=== PATIENT | female | born 1955 | race Caucasian/White ===

== ENCOUNTER 2016-09-13 13:13 | Emergency (ER) | payer OTHER ==
[~2016-09-13] VITALS: Ht 149.9 cm; Wt 56.0 kg
[~2016-09-13 13:13] MED LIST: ACET325T14 PO; ACET650T17 PO; ALPR0.25 PO; ASCO500T8 PO; CHOL100011 PO; DRON400T PO; FURO-92 PO; FURO-93 PO; LOSA50TA6 PO; OMEG1CAP34 PO; POTA10TA90 PO; VITA80004 PO; WARF5TAB PO; WARF7.5T PO
[2016-09-13] MEDS ORDERED: SODIUM CHLORIDE FLUSH 10ML SYR IVF ONE (14:00)
[2016-09-13 14:35] LABS: HEMOGLOBIN 14.4 g/dL (11.7-16.4)
[2016-09-13 14:44] LABS: ASPARTATE AMINO TRANSFERASE 31 U/L (15-37); BLOOD UREA NITROGEN 10 mg/dL (7-18)
[2016-09-13 14:51] LABS: IS PT STATUS REG ER OR PRE ER? YES
[2016-09-13 15:19] VITALS: BP 131/68
== END 2016-09-13 16:16 | disposition home or self-care (01) ==
LOC: ED 15:32
DX: I48.2 Chronic atrial fibrillation (principal); F41.1 Generalized anxiety disorder; I11.0 Hypertensive heart disease with heart failure; Z79.01 Long term (current) use of anticoagulants; Z96.89 Presence of other specified functional implants
CPT/HCPCS: 36415; 70450; 71010; 80053; 83880; 84439; 84443; 84484; 85025; 85610; 93005

== ENCOUNTER → 2016-11-22 | Outpatient (CLI) | payer OTHER ==
[2016-11-22 15:40] LABS: BLOOD UREA NITROGEN 13 mg/dL (7-18)
[2016-11-22 15:52] LABS: ASPARTATE AMINO TRANSFERASE 22 U/L (15-37); TOTAL IRON BINDING CAPACITY 308 mcg/dL (250-450)
== END | disposition home or self-care (01) ==
LOC: LAB 15:10
PROVIDERS: ATTEND Family Medicine
DX: D64.9 Anemia, unspecified (principal)
CPT/HCPCS: 36415; 80053; 82728; 83540; 83550; 84439; 84443; 84481; 85025

== ENCOUNTER 2017-01-05 06:43 | Observation (INO) | payer OTHER ==
[2017-01-03 10:17] VITALS: BP 126/70
[2017-01-03 10:40] LABS: BLOOD UREA NITROGEN 13 mg/dL (7-18)
[2017-01-03 10:44] LABS: ASPARTATE AMINO TRANSFERASE 38 U/L (15-37)
[~2017-01-05] VITALS: Ht 149.9 cm; Wt 55.7 kg
[2017-01-05] MEDS: SODIUM CHLORIDE 0.9% 1,000 ML IV SCH ×2 (06:57→14:57)
[2017-01-05] MEDS ORDERED: METO25TA35 PO (07:02)
[2017-01-05] MEDS ORDERED: AMLO5TAB2 PO (07:02)
[2017-01-05] MEDS ORDERED: VANCOMYCIN 500 MG ONE (07:59)
[2017-01-05] MEDS ORDERED: MIDAZOLAM 1 MG/ML, 5ML ONE ×2 (07:59→08:48)
[2017-01-05] MEDS ORDERED: FENTANYL PF 100 MCG/2ML ONE ×2 (07:59→08:48)
[2017-01-05] MEDS ORDERED: VANCOMYCIN PMX 1GM/200ML 200 ML ONE (08:00)
[2017-01-05] MEDS ORDERED: LIDOCAINE 2%, 20ML ONE (08:46)
[2017-01-05] MEDS ORDERED: DIPHENHYDRAMINE 50 MG/ML, 1ML ONE (08:48)
[2017-01-05 10:20] VITALS: BP 112/66
[2017-01-05] MEDS ORDERED: ZOLPIDEM 5MG TABLET PO PRN (10:30)
[2017-01-05] MEDS ORDERED: ACETAMINOPHEN 325 MG TABLET PO PRN (10:30)
[2017-01-05 13:47] VITALS: BP 104/66
[2017-01-05] MEDS: HYDROcodone/APAP 5/325 TABLET PO PRN ×2 (16:05→22:00)
[2017-01-05 17:40] VITALS: BP 97/61
[2017-01-05] MEDS: DRONEDARONE 400MG TABLET PO SCH (17:48)
[2017-01-05 19:24] VITALS: BP 116/71
[2017-01-05] MEDS ORDERED: VANCOMYCIN PMX 1GM/200ML 200 ML IVPB ONE (20:00)
[2017-01-05] MEDS: SODIUM CHLORIDE FLUSH 10ML SYR IVF SCH (20:25)
[2017-01-05] MEDS: METOPROLOL TARTRATE 25 MG TABLET PO SCH (20:25)
[2017-01-05] MEDS ORDERED: POTASSIUM CHLORIDE 20 MEQ TAB.ER.PRT PO SCH (21:00)
[2017-01-05] MEDS ORDERED: ONDANSETRON 2MG/ML, 2ML IVPush PRN (22:30)
[2017-01-06 01:16] VITALS: BP 112/69
[2017-01-06] MEDS ORDERED: ALPR0.25 PO (08:08)
[2017-01-06] MEDS: DRONEDARONE 400MG TABLET PO SCH (08:37)
[2017-01-06] MEDS: METOPROLOL TARTRATE 25 MG TABLET PO SCH (08:37)
[2017-01-06] MEDS: SODIUM CHLORIDE FLUSH 10ML SYR IVF SCH (08:38)
[2017-01-06 08:41] VITALS: BP 136/79
[2017-01-06] MEDS: HYDROcodone/APAP 5/325 TABLET PO PRN (08:49)
[2017-01-06] MEDS ORDERED: FUROSEMIDE 40 MG TABLET PO SCH (09:00)
[2017-01-06] MEDS ORDERED: OMEGA-3/FISH OIL CAPSULE PO SCH (09:00)
[2017-01-06] MEDS ORDERED: AMLODIPINE 5 MG TABLET PO SCH (09:00)
[2017-01-06] MEDS ORDERED: LOSARTAN 50MG TABLET PO SCH (09:00)
[2017-01-06] MEDS ORDERED: CHOLECALCIFEROL 1,000 UNIT TABLET PO SCH (09:00)
[2017-01-08] MEDS ORDERED: WARFARIN 5 MG TABLET PO-COUM SCH (18:00)
[2017-01-12] MEDS ORDERED: WARFARIN 7.5 MG TABLET PO-COUM SCH (18:00)
== END 2017-01-06 11:14 | disposition home or self-care (01) ==
LOC: CACL 06:43 → ORIP 10:02 → 5SO 10:21 → DCLOUNGE 01-06 10:41
PROVIDERS: ADMIT Internal Medicine Cardiovascular Disease; ATTEND Internal Medicine Cardiovascular Disease
DX: T82.110A Breakdown (mechanical) of cardiac electrode, initial encounter (principal); I44.2 Atrioventricular block, complete; I48.91 Unspecified atrial fibrillation; R42 Dizziness and giddiness; Y83.8 Other surgical procedures as the cause of abnormal reaction of the patient, or of later complication, without mention of misadventure at the time of the procedure
CPT/HCPCS: 33208; 33222; 36415; 71010; 71020; 80053; 85025; 85610; 93005; 96365; 99156; 99157; C1779; C1785; C1892; G0378; J1200; J2250; J3010; J3370; J3490

== ENCOUNTER → 2017-01-14 | Outpatient (CLI) | payer OTHER ==
[~2017-01-14] MED LIST changes: +AMLO5TAB2 PO; +METO25TA35 PO
== END | disposition home or self-care (01) ==
LOC: RAD 15:34
PROVIDERS: ATTEND Internal Medicine Cardiovascular Disease
DX: I48.0 Paroxysmal atrial fibrillation (principal); Z95.0 Presence of cardiac pacemaker; Z98.890 Other specified postprocedural states
CPT/HCPCS: 71020

== ENCOUNTER 2017-02-18 14:05 | Emergency (ER) | payer OTHER ==
[~2017-02-18] VITALS: Ht 149.9 cm; Wt 58.9 kg
[~2017-02-18 14:05] MED LIST changes: +POTA10TA6 PO; -POTA10TA90 PO
[2017-02-18] MEDS ORDERED: ONDANSETRON 2MG/ML, 2ML IVPush ONE (15:00)
[2017-02-18] MEDS ORDERED: SODIUM CHLORIDE FLUSH 10ML SYR IVF ONE (15:00)
[2017-02-18] MEDS ORDERED: ONDANSETRON 2MG/ML, 2ML ONE (15:15)
[2017-02-18 15:16] LABS: HEMATOCRIT 37.9 % (34.6-47.8); HEMOGLOBIN 12.5 g/dL (11.7-16.4); WHITE BLOOD COUNT 4.6 x10^3/uL (3.4-10)
[2017-02-18 15:29] LABS: ASPARTATE AMINO TRANSFERASE 23 U/L (15-37); BLOOD UREA NITROGEN 16 mg/dL (7-18)
[2017-02-18 15:36] LABS: IS PT STATUS REG ER OR PRE ER? YES
[2017-02-18 18:20] VITALS: BP 107/62
== END 2017-02-18 18:23 | disposition home or self-care (01) ==
LOC: ED 17:54
DX: R11.2 Nausea with vomiting, unspecified (principal); Z95.0 Presence of cardiac pacemaker; Z88.0 Allergy status to penicillin; Z79.01 Long term (current) use of anticoagulants; I48.91 Unspecified atrial fibrillation; I10 Essential (primary) hypertension
CPT/HCPCS: 36415; 71010; 80053; 81003; 83690; 83880; 84484; 85025; 85610; 85730; 93005; 99285

== ENCOUNTER → 2017-04-19 | Outpatient (CLI) | payer OTHER ==
[2017-04-19 15:30] LABS: BLOOD UREA NITROGEN 12 mg/dL (7-18)
== END | disposition home or self-care (01) ==
LOC: LAB 15:04
PROVIDERS: ATTEND Nurse Practitioner Family
DX: I10 Essential (primary) hypertension (principal); E78.2 Mixed hyperlipidemia; R42 Dizziness and giddiness
CPT/HCPCS: 36415; 80048

== ENCOUNTER → 2017-05-05 | Outpatient (CLI) | payer OTHER | END | disposition home or self-care (01) | LOC: LAB 10:06 | PROVIDERS: ATTEND Nurse Practitioner Family | DX: I10 Essential (primary) hypertension (principal); E78.2 Mixed hyperlipidemia; I48.0 Paroxysmal atrial fibrillation | CPT/HCPCS: 36415; 84436; 84443; 84481 ==

== ENCOUNTER 2017-06-18 22:40 | Emergency (ER) | payer OTHER ==
[~2017-06-18] VITALS: Ht 149.9 cm; Wt 57.0 kg
[2017-06-18 22:48] VITALS: BP 155/79
[2017-06-18 23:15] LABS: HEMOGLOBIN 14.8 g/dL (11.7-16.4); WHITE BLOOD COUNT 5.4 x10^3/uL (3.4-10)
[2017-06-18 23:24] LABS: BLOOD UREA NITROGEN 17 mg/dL (7-18)
[2017-06-18 23:29] LABS: IS PT STATUS REG ER OR PRE ER? YES
== END 2017-06-19 00:09 | disposition home or self-care (01) ==
LOC: ED 23:29
DX: R07.89 Other chest pain (principal); I10 Essential (primary) hypertension; I48.91 Unspecified atrial fibrillation; Z95.0 Presence of cardiac pacemaker
CPT/HCPCS: 36415; 71010; 80048; 82040; 84484; 85025; 85610; 93005; 99285

== ENCOUNTER → 2017-07-12 | Outpatient (CLI) | payer OTHER | END | disposition home or self-care (01) | LOC: RAD 19:24 | PROVIDERS: ATTEND Family Medicine | DX: J43.9 Emphysema, unspecified (principal); J98.11 Atelectasis; S29.9XXA Unspecified injury of thorax, initial encounter; W19.XXXA Unspecified fall, initial encounter; Y93.89 Activity, other specified; Y92.89 Other specified places as the place of occurrence of the external cause; Y99.8 Other external cause status | CPT/HCPCS: 71046 ==

== ENCOUNTER → 2017-07-20 | Outpatient (CLI) | payer OTHER | END | disposition home or self-care (01) | LOC: RAD 20:09 | PROVIDERS: ATTEND Nurse Practitioner Family | DX: M79.604 Pain in right leg (principal); I48.91 Unspecified atrial fibrillation ==

== ENCOUNTER → 2017-09-13 | Outpatient (CLI) | payer OTHER | END | disposition home or self-care (01) | LOC: RAD 18:33 | PROVIDERS: ATTEND Internal Medicine Cardiovascular Disease | DX: I10 Essential (primary) hypertension (principal); E78.2 Mixed hyperlipidemia; I48.0 Paroxysmal atrial fibrillation; I48.2 Chronic atrial fibrillation; R00.2 Palpitations; R06.00 Dyspnea, unspecified | CPT/HCPCS: 71046 ==

== ENCOUNTER → 2017-09-15 | Outpatient (CLI) | payer OTHER | END | disposition home or self-care (01) | LOC: CARD 13:42 | PROVIDERS: ATTEND Internal Medicine Cardiovascular Disease | DX: R06.00 Dyspnea, unspecified (principal) | CPT/HCPCS: 94060; 94726; 94729 ==

== ENCOUNTER 2018-02-07 12:47 | Inpatient (IN) | payer OTHER ==
[~2018-02-07] VITALS: Ht 149.9 cm; Wt 59.4 kg
[2018-02-07 13:30] LABS: BASOPHILS # (AUTO) 0.03 x10^3/uL (0-0.1); BASOPHILS % (AUTO) 1 % (0-1); EOSINOPHILS # (AUTO) 0.06 x10^3/uL (0-0.4); EOSINOPHILS % (AUTO) 2 % (1-7); LYMPHOCYTES # (AUTO) 1.52 x10^3/uL (1-3.4); LYMPHOCYTES % (AUTO) 40 % (22-44); MD NO; MEAN CORPUSCULAR HEMOGLOBIN 33.3 pg (27.0-34.8); MEAN CORPUSCULAR HGB CONC 33.7 g/dL (32.4-35.8); MEAN CORPUSCULAR VOLUME 98.8 fL (80-100); MEAN PLATELET VOLUME 7.9 fL (7.4-10.4); MONOCYTES # (AUTO) 0.45 x10^3/uL (0.2-0.8); MONOCYTES % (AUTO) 12 % (2-9); NEUTROPHILS # (AUTO) 1.74 x10^3/uL (1.8-6.8); NEUTROPHILS % (AUTO) 46 % (42-75); PLATELET COUNT 303 x10^3/uL (130-400); RED BLOOD COUNT 4.25 x10^6/uL (3.82-5.3); RED CELL DISTRIBUTION WIDTH 13.7 % (9.6-15.2)
[2018-02-07] MEDS ORDERED: SODIUM CHLORIDE FLUSH 10ML SYR IVF ONE (13:30)
[2018-02-07 13:37] LABS: INTERNATIONAL NORMALIZED RATIO 2.22 (0.93-1.1); PROTHROMBIN TIME 22.5 Seconds (9.6-11.5)
[2018-02-07 13:40] LABS: ALBUMIN 3.9 g/dL (3.4-5.0); ANION GAP 8 mmol/L (5-15); CALCIUM 9.3 mg/dL (8.5-10.1); CHLORIDE 104 mmol/L (98-107)
[2018-02-07 13:46] LABS: ALANINE AMINOTRANSFERASE 31 U/L (12-78); ALKALINE PHOSPHATASE 97 U/L (45-117); BILIRUBIN,TOTAL 0.5 mg/dL (0.2-1.0); CREATININE 0.79 mg/dL (0.55-1.02); TOTAL PROTEIN 7.7 g/dL (6.4-8.2); TROPONIN I < 0.015 ng/mL (0.000-0.045)
[2018-02-07] MEDS ORDERED: POTA20TA89 PO (14:46)
[2018-02-07] MEDS ORDERED: VALS80TA3 PO (14:47)
[2018-02-07] MEDS ORDERED: LABETALOL 5MG/ML, 20ML IVPush PRN (15:30)
[2018-02-07] MEDS ORDERED: LIDODERM 5% PATCH TD PRN (15:30)
[2018-02-07] MEDS ORDERED: ENALAPRILAT 1.25 MG/ML, 2ML IVPush PRN (15:30)
[2018-02-07] MEDS ORDERED: POLYETHYLENE GLYCOL 17 GM PACKET PO PRN (15:30)
[2018-02-07] MEDS ORDERED: METHOCARBAMOL 500 MG TABLET PO PRN (15:30)
[2018-02-07] MEDS ORDERED: ONDANSETRON 2MG/ML, 2ML IVPush PRN (15:30)
[2018-02-07] MEDS ORDERED: ONDANSETRON ODT 4 MG PO PRN (15:30)
[2018-02-07] MEDS ORDERED: BISACODYL 10 MG SUPP PR PRN (15:30)
[2018-02-07] MEDS ORDERED: DOCUSATE 100 MG CAPSULE PO PRN (15:30)
[2018-02-07] MEDS ORDERED: morphine SULFATE 10 MG/ML, 1ML IVPush PRN (15:30)
[2018-02-07 16:54] VITALS: BP 119/73
[2018-02-07] MEDS: ACETAMINOPHEN 325 MG TABLET PO PRN ×2 (17:32→23:21)
[2018-02-07] MEDS: WARFARIN 5 MG TABLET PO-COUM SCH (17:32)
[2018-02-07 19:33] LABS: TROPONIN I < 0.015 ng/mL (0.000-0.045)
[2018-02-07 19:49] VITALS: BP 124/87
[2018-02-07 19:52] VITALS: BP 134/81
[2018-02-07 19:53] VITALS: BP 142/84
[2018-02-07] MEDS: METOPROLOL TARTRATE 25 MG TABLET PO SCH (20:37)
[2018-02-07] MEDS: POTASSIUM CHLORIDE 20 MEQ TAB.ER.PRT PO SCH (20:37)
[2018-02-07] MEDS: DRONEDARONE 400MG TABLET PO SCH (20:37)
[2018-02-08 01:08] VITALS: BP 111/76
[2018-02-08] MEDS ORDERED: MELATONIN 3 MG TABLET PO PRN (03:00)
[2018-02-08 06:33] LABS: BASOPHILS # (AUTO) 0.04 x10^3/uL (0-0.1); BASOPHILS % (AUTO) 1 % (0-1); EOSINOPHILS # (AUTO) 0.09 x10^3/uL (0-0.4); EOSINOPHILS % (AUTO) 2 % (1-7); LYMPHOCYTES # (AUTO) 2.05 x10^3/uL (1-3.4); LYMPHOCYTES % (AUTO) 52 % (22-44); MD NO; MEAN CORPUSCULAR HEMOGLOBIN 33.3 pg (27.0-34.8); MEAN CORPUSCULAR HGB CONC 34.3 g/dL (32.4-35.8); MEAN CORPUSCULAR VOLUME 97.3 fL (80-100); MONOCYTES # (AUTO) 0.39 x10^3/uL (0.2-0.8); MONOCYTES % (AUTO) 10 % (2-9); NEUTROPHILS # (AUTO) 1.36 x10^3/uL (1.8-6.8); NEUTROPHILS % (AUTO) 35 % (42-75); PLATELET COUNT 298 x10^3/uL (130-400); RED BLOOD COUNT 4.11 x10^6/uL (3.82-5.3); RED CELL DISTRIBUTION WIDTH 13.8 % (9.6-15.2)
[2018-02-08 06:40] LABS: CHLORIDE 105 mmol/L (98-107)
[2018-02-08 06:53] LABS: ALANINE AMINOTRANSFERASE 26 U/L (12-78); ALBUMIN 3.6 g/dL (3.4-5.0); ALKALINE PHOSPHATASE 74 U/L (45-117); ANION GAP 7 mmol/L (5-15); BILIRUBIN,TOTAL 0.6 mg/dL (0.2-1.0); CALCIUM 8.5 mg/dL (8.5-10.1); CHOL/HDL RATIO 2.4; CHOLESTEROL, TOTAL 208 mg/dL (140-239); CREATININE 0.79 mg/dL (0.55-1.02); HDL CHOL % 42 % (28-40); HDL CHOLESTEROL (DIRECT) 87 mg/dL (40-60); LDL CHOLESTEROL,CALCULATED 89 mg/dL (54-169); TOTAL PROTEIN 6.9 g/dL (6.4-8.2); TRIGLYCERIDES 161 mg/dL (50-200); VLDL CHOLESTEROL 32 mg/dL (0-25)
[2018-02-08 07:00] LABS: HCT (SEDRATE) 39.9 % (34.6-47.8)
[2018-02-08 08:22] VITALS: BP 110/74
[2018-02-08] MEDS: CHOLECALCIFEROL 1,000 UNIT TABLET PO SCH (09:14)
[2018-02-08] MEDS: POTASSIUM CHLORIDE 20 MEQ TAB.ER.PRT PO SCH ×2 (09:14→21:24)
[2018-02-08] MEDS: FUROSEMIDE 40 MG TABLET PO SCH (09:15)
[2018-02-08] MEDS: VALSARTAN 80 MG TABLET PO SCH (09:15)
[2018-02-08] MEDS: DRONEDARONE 400MG TABLET PO SCH ×2 (09:16→21:24)
[2018-02-08] MEDS: METOPROLOL TARTRATE 25 MG TABLET PO SCH ×2 (09:16→21:24)
[2018-02-08] MEDS: ACETAMINOPHEN 325 MG TABLET PO PRN (10:38)
[2018-02-08 14:00] VITALS: BP_SYST 107; BP_SYST 111; BP_SYST 116; BP_DIAS 67; BP_DIAS 70; BP_DIAS 76
[2018-02-08] MEDS: WARFARIN 5 MG TABLET PO-COUM SCH (17:10)
[2018-02-08 20:00] VITALS: BP 107/64
[2018-02-08 21:19] VITALS: BP 108/70
[2018-02-08 21:20] VITALS: BP 113/67
[2018-02-09 00:47] VITALS: BP 90/56
[2018-02-09 06:10] LABS: ALBUMIN 3.4 g/dL (3.4-5.0); CALCIUM 8.6 mg/dL (8.5-10.1); CHLORIDE 109 mmol/L (98-107)
[2018-02-09 06:12] LABS: ANION GAP 7 mmol/L (5-15)
[2018-02-09 06:42] VITALS: BP_SYST 106; BP_SYST 94; BP_SYST 96; BP_DIAS 59; BP_DIAS 60; BP_DIAS 73
[2018-02-09 09:35] LABS: INTERNATIONAL NORMALIZED RATIO 2.77 (0.93-1.1); PROTHROMBIN TIME 28.2 Seconds (9.6-11.5)
[2018-02-09] MEDS: ACETAMINOPHEN 325 MG TABLET PO PRN (10:26)
[2018-02-09] MEDS: POTASSIUM CHLORIDE 20 MEQ TAB.ER.PRT PO SCH ×2 (10:27→20:11)
[2018-02-09] MEDS: DRONEDARONE 400MG TABLET PO SCH ×2 (10:27→20:12)
[2018-02-09] MEDS: FUROSEMIDE 40 MG TABLET PO SCH (10:27)
[2018-02-09] MEDS: METOPROLOL TARTRATE 25 MG TABLET PO SCH ×2 (10:28→20:12)
[2018-02-09] MEDS: VALSARTAN 80 MG TABLET PO SCH (10:28)
[2018-02-09] MEDS: CHOLECALCIFEROL 1,000 UNIT TABLET PO SCH (10:28)
[2018-02-09 14:20] VITALS: BP 97/63
[2018-02-09] MEDS: WARFARIN 5 MG TABLET PO-COUM SCH (17:49)
[2018-02-09 19:21] VITALS: BP 111/72
[2018-02-10 01:19] VITALS: BP 100/62
[2018-02-10 05:42] LABS: INTERNATIONAL NORMALIZED RATIO 2.99 (0.93-1.1); PROTHROMBIN TIME 30.1 Seconds (9.6-11.5)
[2018-02-10] MEDS ORDERED: OMNIPAQUE 350 MG/ML, 100ML BOTTLE ONE (08:49)
[2018-02-10] MEDS ORDERED: VALSARTAN 80 MG TABLET PO SCH (09:00)
[2018-02-10] MEDS ORDERED: VALS80TA30 PO (09:10)
[2018-02-10 09:59] VITALS: BP 100/62
[2018-02-10 10:09] VITALS: BP 119/62
[2018-02-10] MEDS: CHOLECALCIFEROL 1,000 UNIT TABLET PO SCH (10:10)
[2018-02-10] MEDS: POTASSIUM CHLORIDE 20 MEQ TAB.ER.PRT PO SCH (10:10)
[2018-02-10] MEDS: METOPROLOL TARTRATE 25 MG TABLET PO SCH (10:10)
[2018-02-10] MEDS: FUROSEMIDE 40 MG TABLET PO SCH (10:11)
[2018-02-10] MEDS: DRONEDARONE 400MG TABLET PO SCH (10:11)
[2018-02-10 12:29] VITALS: BP 123/77
[2018-02-10] MEDS: WARFARIN 5 MG TABLET PO-COUM SCH (17:13)
[2018-02-10] MEDS ORDERED: AMIODARONE 200 MG TABLET PO SCH (21:00)
== END 2018-02-10 17:18 | disposition home or self-care (01) | DRG 309 ==
LOC: ED 14:20 → EDIP 14:21 → ED 14:42 → 5SO 16:36
PROVIDERS: ADMIT Internal Medicine; ATTEND Internal Medicine
DX: T82.120A Displacement of cardiac electrode, initial encounter (principal); D68.69 Other thrombophilia; I50.32 Chronic diastolic (congestive) heart failure; I48.0 Paroxysmal atrial fibrillation; F41.9 Anxiety disorder, unspecified; I11.0 Hypertensive heart disease with heart failure; I25.10 Atherosclerotic heart disease of native coronary artery without angina pectoris; I34.0 Nonrheumatic mitral (valve) insufficiency; Z66 Do not resuscitate; Z79.01 Long term (current) use of anticoagulants; Z87.74 Personal history of (corrected) congenital malformations of heart and circulatory system; Z90.49 Acquired absence of other specified parts of digestive tract; Z95.0 Presence of cardiac pacemaker; Z95.2 Presence of prosthetic heart valve; R07.89 Other chest pain; G43.909 Migraine, unspecified, not intractable, without status migrainosus; Y83.8 Other surgical procedures as the cause of abnormal reaction of the patient, or of later complication, without mention of misadventure at the time of the procedure; Y92.89 Other specified places as the place of occurrence of the external cause
CPT/HCPCS: 36415; 70450; 71045; 71275; 80053; 80061; 80069; 83735; 83880; 84443; 84484; 85025; 85610; 85651; 93005; 93306; 93880; 99285; Q9967

== ENCOUNTER 2018-05-01 17:19 | Observation (INO) | payer OTHER ==
[~2018-05-01] VITALS: Ht 149.9 cm; Wt 59.6 kg
[~2018-05-01 17:19] MED LIST changes: -AMLO5TAB2 PO; +AMLO5TAB7 PO; -LOSA50TA6 PO; +LOSA50TA7 PO; +POTA20TA89 PO; +VALS80TA3 PO; +VALS80TA30 PO
[2018-05-01] MEDS ORDERED: SODIUM CHLORIDE FLUSH 10ML SYR IVF ONE (17:30)
[2018-05-01] MEDS ORDERED: ASPIRIN 81 MG TABLET CHEW PO ONE (17:30)
[2018-05-01] MEDS ORDERED: NITROGLYCERIN SINGLE TAB 0.4 MG SL PRN (17:30)
[2018-05-01] MEDS ORDERED: ASPIRIN 81 MG TABLET CHEW ONE (17:54)
[2018-05-01] MEDS ORDERED: NITROGLYCERIN SINGLE TAB 0.4 MG SL ONE (17:55)
[2018-05-01 17:59] LABS: MEAN CORPUSCULAR HEMOGLOBIN 33.6 pg (27.0-34.8); MEAN CORPUSCULAR HGB CONC 34.2 g/dL (32.4-35.8); MEAN CORPUSCULAR VOLUME 98.2 fL (80-100); MEAN PLATELET VOLUME 7.9 fL (7.4-10.4); PLATELET COUNT 272 x10^3/uL (130-400); RED BLOOD COUNT 3.86 x10^6/uL (3.82-5.3); RED CELL DISTRIBUTION WIDTH 13.6 % (9.6-15.2)
[2018-05-01 18:05] LABS: INTERNATIONAL NORMALIZED RATIO 2.44 (0.93-1.1); PROTHROMBIN TIME 24.9 Seconds (9.6-11.5)
[2018-05-01 18:07] LABS: ALANINE AMINOTRANSFERASE 36 U/L (12-78); ALBUMIN 3.7 g/dL (3.4-5.0); ANION GAP 9 mmol/L (5-15); CALCIUM 9.1 mg/dL (8.5-10.1); CHLORIDE 108 mmol/L (98-107); CREATININE 0.69 mg/dL (0.55-1.02)
[2018-05-01 18:11] LABS: ALKALINE PHOSPHATASE 99 U/L (45-117); BILIRUBIN,TOTAL 0.3 mg/dL (0.2-1.0); TOTAL PROTEIN 7.2 g/dL (6.4-8.2); TROPONIN I < 0.015 ng/mL (0.000-0.045)
[2018-05-01 18:12] LABS: BASOPHILS # (AUTO) 0.02 x10^3/uL (0-0.1); BASOPHILS % (AUTO) 0 % (0-1); EOSINOPHILS # (AUTO) 0.04 x10^3/uL (0-0.4); EOSINOPHILS % (AUTO) 1 % (1-7); LYMPHOCYTES # (AUTO) 1.24 x10^3/uL (1-3.4); LYMPHOCYTES % (AUTO) 25 % (22-44); MD SCAN; MONOCYTES # (AUTO) 0.34 x10^3/uL (0.2-0.8); MONOCYTES % (AUTO) 7 % (2-9); NEUTROPHILS # (AUTO) 3.27 x10^3/uL (1.8-6.8); NEUTROPHILS % (AUTO) 67 % (42-75)
[2018-05-01] MEDS ORDERED: POTA500C PO (18:12)
[2018-05-01] MEDS ORDERED: POTA10TA11 PO (18:13)
[2018-05-01] MEDS ORDERED: SODIUM CHLORIDE FLUSH 10ML SYR IVF PRN (19:30)
[2018-05-01] MEDS ORDERED: NS + 20MEQ KCL 1,000 ML IV SCH (19:38)
[2018-05-01] MEDS ORDERED: morphine SULFATE 10 MG/ML, 1ML IVPush PRN (20:00)
[2018-05-01] MEDS ORDERED: POLYETHYLENE GLYCOL 17 GM PACKET PO PRN (20:00)
[2018-05-01] MEDS ORDERED: HYDROcodone/APAP 5/325 TABLET PO PRN (20:00)
[2018-05-01] MEDS ORDERED: NITROGLYCERIN 0.4 MG/SPRAY SL PRN (20:00)
[2018-05-01] MEDS ORDERED: ONDANSETRON ODT 4 MG PO PRN (20:00)
[2018-05-01] MEDS ORDERED: ACETAMINOPHEN 325 MG TABLET PO PRN (20:00)
[2018-05-01] MEDS ORDERED: NITROGLYCERIN 0.4 MG BOTTLE (25 TABS) SL PRN (20:00)
[2018-05-01] MEDS ORDERED: DOCUSATE 100 MG CAPSULE PO PRN (20:00)
[2018-05-01 20:24] VITALS: BP 132/82
[2018-05-01] MEDS ORDERED: WARFARIN 5 MG TABLET PO-COUM SCH (20:30)
[2018-05-01] MEDS ORDERED: POTASSIUM CHLORIDE 20 MEQ TAB.ER.PRT PO SCH (21:00)
[2018-05-01 22:17] VITALS: BP 117/61
[2018-05-01] MEDS: DRONEDARONE 400MG TABLET PO SCH (22:19)
[2018-05-01] MEDS: METOPROLOL TARTRATE 25 MG TABLET PO SCH (22:19)
[2018-05-01] MEDS: FAMOTIDINE 20 MG TABLET PO SCH (22:19)
[2018-05-01 23:39] LABS: TROPONIN I < 0.015 ng/mL (0.000-0.045)
[2018-05-02 01:09] VITALS: BP 85/54
[2018-05-02 02:52] VITALS: BP 96/61
[2018-05-02 05:53] LABS: ANION GAP 7 mmol/L (5-15); CALCIUM 8.4 mg/dL (8.5-10.1); CHLORIDE 112 mmol/L (98-107); CREATININE 0.82 mg/dL (0.55-1.02)
[2018-05-02 05:58] LABS: CHOL/HDL RATIO 2.1; CHOLESTEROL, TOTAL 186 mg/dL (140-239); HDL CHOL % 47 % (28-40); HDL CHOLESTEROL (DIRECT) 87 mg/dL (40-60); LDL CHOLESTEROL,CALCULATED 78 mg/dL (54-169); LDL/HDL RATIO 0.9 (0.5-3.0); TRIGLYCERIDES 106 mg/dL (50-200); TROPONIN I < 0.015 ng/mL (0.000-0.045); VLDL CHOLESTEROL 21 mg/dL (0-25)
[2018-05-02] MEDS: FAMOTIDINE 20 MG TABLET PO SCH (08:27)
[2018-05-02 08:49] VITALS: BP 127/81
[2018-05-02] MEDS ORDERED: SENNA/DOCUSATE TABLET PO SCH (09:00)
[2018-05-02] MEDS ORDERED: POTASSIUM CHLORIDE 20 MEQ TAB.ER.PRT PO SCH (09:00)
[2018-05-02] MEDS ORDERED: VALSARTAN 80 MG TABLET PO SCH (09:00)
[2018-05-02] MEDS ORDERED: FUROSEMIDE 40 MG TABLET PO SCH (09:00)
[2018-05-02] MEDS ORDERED: POTA20TA14 PO (09:38)
[2018-05-02] MEDS ORDERED: ALPR0.254 PO (09:38)
[2018-05-02] MEDS ORDERED: LOSA100T7 PO (09:38)
[2018-05-02] MEDS ORDERED: ALEN70TA5 PO (09:38)
[2018-05-02] MEDS ORDERED: REGADENOSON 0.4 MG/5 ML SYRINGE ONE (09:48)
[2018-05-02] MEDS ORDERED: LOSARTAN 50MG TABLET PO SCH (11:30)
[2018-05-02 12:13] VITALS: BP 115/65
[2018-05-02] MEDS: DRONEDARONE 400MG TABLET PO SCH (12:23)
[2018-05-02] MEDS: METOPROLOL TARTRATE 25 MG TABLET PO SCH (12:23)
[2018-05-02 13:14] VITALS: BP 118/73
== END 2018-05-02 14:20 | disposition home or self-care (01) ==
LOC: SUATTDRO 19:12 → ED 19:23 → INTOOBSV 19:39 → EDIP 19:39 → 5SO 20:15 → DCLOUNGE 05-02 14:06
PROVIDERS: ADMIT Family Medicine; ATTEND Family Medicine
DX: R07.89 Other chest pain (principal); I25.10 Atherosclerotic heart disease of native coronary artery without angina pectoris; I11.0 Hypertensive heart disease with heart failure; I50.32 Chronic diastolic (congestive) heart failure; D68.69 Other thrombophilia; I48.0 Paroxysmal atrial fibrillation; Z79.01 Long term (current) use of anticoagulants; Z95.0 Presence of cardiac pacemaker; Z95.2 Presence of prosthetic heart valve; Z82.3 Family history of stroke
CPT/HCPCS: 36415; 71045; 71275; 78452; 80048; 80053; 80061; 83690; 83735; 83880; 84484; 85025; 85610; 85730; 93005; 93017; 99285; A9502; C9898; G0378; J2785; J3480

== ENCOUNTER 2018-09-11 19:03 | Outpatient (CLI) | payer OTHER ==
[~2018-09-11 19:03] MED LIST changes: +ALEN70TA6 PO; +ALPR0.254 PO; +AMLO-150 PO; -AMLO5TAB7 PO; +LOSA100T14 PO; +LOSA50TA14 PO; -LOSA50TA7 PO; +POTA10TA11 PO; +POTA20TA14 PO; +POTA500C PO
[2018-09-11 19:23] LABS: BASOPHILS # (AUTO) 0.03 x10^3/uL (0-0.1); BASOPHILS % (AUTO) 1 % (0-1); EOSINOPHILS # (AUTO) 0.04 x10^3/uL (0-0.4); EOSINOPHILS % (AUTO) 1 % (1-7); LYMPHOCYTES # (AUTO) 1.89 x10^3/uL (1-3.4); LYMPHOCYTES % (AUTO) 41 % (22-44); MD NO; MEAN CORPUSCULAR HGB CONC 33.7 g/dL (32.4-35.8); MEAN CORPUSCULAR VOLUME 97.9 fL (80-100); MEAN PLATELET VOLUME 7.7 fL (7.4-10.4); MONOCYTES # (AUTO) 0.32 x10^3/uL (0.2-0.8); MONOCYTES % (AUTO) 7 % (2-9); NEUTROPHILS # (AUTO) 2.39 x10^3/uL (1.8-6.8); NEUTROPHILS % (AUTO) 51 % (42-75); PLATELET COUNT 233 x10^3/uL (130-400); RED BLOOD COUNT 4.07 x10^6/uL (3.82-5.3)
[2018-09-11 19:35] LABS: ALBUMIN 3.8 g/dL (3.4-5.0); ANION GAP 6 mmol/L (5-15); CALCIUM 8.8 mg/dL (8.5-10.1); CHLORIDE 107 mmol/L (98-107)
[2018-09-11 19:45] LABS: ALANINE AMINOTRANSFERASE 27 U/L (12-78); ALKALINE PHOSPHATASE 124 U/L (45-117); BILIRUBIN,TOTAL 0.4 mg/dL (0.2-1.0); CHOL/HDL RATIO 2.2; CHOLESTEROL, TOTAL 201 mg/dL (140-239); CREATININE 1.23 mg/dL (0.55-1.02); HDL CHOLESTEROL (DIRECT) 93 mg/dL (40-60); TOTAL PROTEIN 7.1 g/dL (6.4-8.2); TRIGLYCERIDES 263 mg/dL (50-200); VLDL CHOLESTEROL 53 mg/dL (0-25)
[2018-09-11 19:46] LABS: HDL CHOL % 46 % (28-40); LDL CHOLESTEROL,CALCULATED 55 mg/dL (54-169); LDL/HDL RATIO 0.6 (0.5-3.0)
[2018-09-13 09:47] LABS: T4 (THYROXINE) 10.6 mcg/dL (4.8-13.9)
== END 2018-09-11 23:59 | disposition home or self-care (01) ==
LOC: LAB 19:03
PROVIDERS: ATTEND Nurse Practitioner Family
DX: I48.0 Paroxysmal atrial fibrillation (principal); I10 Essential (primary) hypertension; E78.2 Mixed hyperlipidemia
CPT/HCPCS: 36415; 80053; 80061; 84436; 84443; 84481; 85025

== ENCOUNTER → 2018-10-20 | Outpatient (CLI) | payer OTHER | END | disposition home or self-care (01) | LOC: RAD 14:31 | PROVIDERS: ATTEND Family Medicine | DX: M19.041 Primary osteoarthritis, right hand (principal); M19.042 Primary osteoarthritis, left hand; Z88.0 Allergy status to penicillin; Z87.891 Personal history of nicotine dependence ==

== ENCOUNTER → 2018-11-28 | Outpatient (CLI) | payer OTHER ==
[2018-11-28 17:59] LABS: BASOPHILS # (AUTO) 0.02 x10^3/uL (0-0.1); BASOPHILS % (AUTO) 0 % (0-1); EOSINOPHILS # (AUTO) 0.06 x10^3/uL (0-0.4); EOSINOPHILS % (AUTO) 1 % (1-7); LYMPHOCYTES # (AUTO) 1.35 x10^3/uL (1-3.4); LYMPHOCYTES % (AUTO) 27 % (22-44); MD NO; MEAN CORPUSCULAR HEMOGLOBIN 32.7 pg (27.0-34.8); MEAN CORPUSCULAR HGB CONC 32.6 g/dL (32.4-35.8); MEAN CORPUSCULAR VOLUME 100.3 fL (80-100); MEAN PLATELET VOLUME 7.9 fL (7.4-10.4); MONOCYTES # (AUTO) 0.36 x10^3/uL (0.2-0.8); MONOCYTES % (AUTO) 7 % (2-9); NEUTROPHILS # (AUTO) 3.14 x10^3/uL (1.8-6.8); NEUTROPHILS % (AUTO) 64 % (42-75); PLATELET COUNT 259 x10^3/uL (130-400); RED BLOOD COUNT 3.99 x10^6/uL (3.82-5.3); RED CELL DISTRIBUTION WIDTH 14.6 % (9.6-15.2)
== END | disposition home or self-care (01) ==
LOC: LAB 17:27
PROVIDERS: ATTEND Family Medicine
DX: D72.819 Decreased white blood cell count, unspecified (principal)
CPT/HCPCS: 36415; 85025

== ENCOUNTER 2019-02-07 11:04 | Outpatient (CLI) | payer OTHER | END 2019-02-07 23:59 | disposition home or self-care (01) | LOC: CFH 11:04 | PROVIDERS: ATTEND Family Medicine | DX: J40 Bronchitis, not specified as acute or chronic (principal); J98.11 Atelectasis; J98.4 Other disorders of lung; R53.83 Other fatigue | CPT/HCPCS: 36415; 71046; 80053; 80061; 83036; 84439; 84443; 84481; 85025 ==

== ENCOUNTER 2019-02-08 13:11 | Outpatient (CLI) | payer OTHER | END 2019-02-08 23:59 | disposition home or self-care (01) | LOC: CFH 13:11 | PROVIDERS: ATTEND Nurse Practitioner Family | DX: I08.3 Combined rheumatic disorders of mitral, aortic and tricuspid valves (principal); I10 Essential (primary) hypertension; E78.5 Hyperlipidemia, unspecified; R06.02 Shortness of breath; Z95.0 Presence of cardiac pacemaker; Z79.01 Long term (current) use of anticoagulants; Z87.891 Personal history of nicotine dependence | CPT/HCPCS: 93306 ==

== ENCOUNTER → 2019-07-25 | Outpatient (CLI) | payer OTHER ==
[2019-07-25 16:39] LABS: ALANINE AMINOTRANSFERASE 44 U/L (12-78); ALBUMIN 3.3 g/dL (3.4-5.0); ANION GAP 3 mmol/L (5-15); CALCIUM 8.3 mg/dL (8.5-10.1); CHLORIDE 114 mmol/L (98-107)
[2019-07-25 16:49] LABS: ALKALINE PHOSPHATASE 130 U/L (45-117); BILIRUBIN,TOTAL 0.4 mg/dL (0.2-1.0); CREATININE 0.91 mg/dL (0.55-1.02); FREE T4 (FREE THYROXINE) 1.36 ng/dL (0.76-1.46); TOTAL PROTEIN 6.8 g/dL (6.4-8.2)
[2019-07-25 16:58] LABS: MD YES; MEAN CORPUSCULAR HEMOGLOBIN 33.4 pg (27.0-34.8); MEAN CORPUSCULAR HGB CONC 33.5 g/dL (32.4-35.8); MEAN CORPUSCULAR VOLUME 99.9 fL (80-100); MEAN PLATELET VOLUME 7.9 fL (7.4-10.4); PLATELET COUNT 252 x10^3/uL (130-400); RED BLOOD COUNT 3.79 x10^6/uL (3.82-5.3); RED CELL DISTRIBUTION WIDTH 14.5 % (9.6-15.2)
[2019-07-25 17:06] LABS: <PLATELET ESTIMATE> ADEQUATE; <PLT MORPHOLOGY> NORMAL PLT MORPH; <RBC MORPHOLOGY> NORMAL; BASOS#(MANUAL) 0.04 x10^3/uL (0-0.1); BASOS% (MANUAL) 1 % (0-1); LYMPH#(MANUAL) 1.14 x10^3/uL (1-3.4); LYMPHS% (MANUAL) 26 % (22-44); MONOS#(MANUAL) 0.44 x10^3/uL (0.3-2.7); MONOS% (MANUAL) 10 % (2-9); REACTIVE LYMPHS # (MANUAL) 0.26 x10^3/uL (0-0); REACTIVE LYMPHS % (MANUAL) 6 % (0-0); SEG#(MANUAL) 2.51 x10^3/uL (1.8-6.8); SEGS% (MANUAL) 57 % (42-75)
== END | disposition home or self-care (01) ==
LOC: LAB 16:12
PROVIDERS: ATTEND Family Medicine
DX: R42 Dizziness and giddiness (principal); R53.83 Other fatigue; R73.02 Impaired glucose tolerance (oral)
CPT/HCPCS: 36415; 80053; 83036; 84439; 84443; 84481; 85025

== ENCOUNTER → 2019-08-14 | Outpatient (CLI) | payer OTHER ==
[2019-08-14 16:09] LABS: ALBUMIN 3.7 g/dL (3.4-5.0); ANION GAP 7 mmol/L (5-15); CALCIUM 9.1 mg/dL (8.5-10.1); CHLORIDE 106 mmol/L (98-107)
[2019-08-14 16:12] LABS: ALANINE AMINOTRANSFERASE 29 U/L (12-78); ALKALINE PHOSPHATASE 101 U/L (45-117); BILIRUBIN,TOTAL 0.8 mg/dL (0.2-1.0); CREATININE 0.97 mg/dL (0.55-1.02); TOTAL PROTEIN 7.6 g/dL (6.4-8.2)
== END | disposition home or self-care (01) ==
LOC: LAB 15:40
PROVIDERS: ATTEND Internal Medicine Cardiovascular Disease
DX: E78.2 Mixed hyperlipidemia (principal); I48.0 Paroxysmal atrial fibrillation; R06.02 Shortness of breath; R42 Dizziness and giddiness; R73.9 Hyperglycemia, unspecified
CPT/HCPCS: 36415; 80053

== ENCOUNTER → 2019-09-06 | Outpatient (CLI) | payer OTHER | END | disposition home or self-care (01) | LOC: LAB 16:29 → RAD 16:40 | PROVIDERS: ATTEND Family Medicine | DX: M84.48XA Pathological fracture, other site, initial encounter for fracture (principal); M85.88 Other specified disorders of bone density and structure, other site; M47.812 Spondylosis without myelopathy or radiculopathy, cervical region; M48.02 Spinal stenosis, cervical region; Z95.0 Presence of cardiac pacemaker | CPT/HCPCS: 72050; 72072 ==

== ENCOUNTER 2019-11-16 15:01 | Outpatient (CLI) | payer OTHER | END 2019-11-16 23:59 | disposition home or self-care (01) | LOC: RAD 15:01 | PROVIDERS: ATTEND Registered Nurse | DX: M19.012 Primary osteoarthritis, left shoulder (principal); I48.0 Paroxysmal atrial fibrillation; R00.2 Palpitations; R07.89 Other chest pain; M85.88 Other specified disorders of bone density and structure, other site | CPT/HCPCS: 71046 ==

== ENCOUNTER → 2019-12-25 | Outpatient (CLI) | payer OTHER ==
[~2019-12-25] MED LIST changes: +REGADENOSON 0.4 MG/5 ML SYRINGE ONE; -WARF5TAB PO; +WARF5TAB2 PO
[2019-12-25 17:32] LABS: BASOPHILS # (AUTO) 0.02 x10^3/uL (0-0.1); BASOPHILS % (AUTO) 1 % (0-1); EOSINOPHILS # (AUTO) 0.06 x10^3/uL (0-0.4); EOSINOPHILS % (AUTO) 2 % (1-7); LYMPHOCYTES # (AUTO) 1.24 x10^3/uL (1-3.4); LYMPHOCYTES % (AUTO) 37 % (22-44); MD NO; MEAN CORPUSCULAR HGB CONC 33.9 g/dL (32.4-35.8); MEAN CORPUSCULAR VOLUME 100.5 fL (80-100); MEAN PLATELET VOLUME 9.1 fL (7.4-10.4); MONOCYTES # (AUTO) 0.33 x10^3/uL (0.2-0.8); MONOCYTES % (AUTO) 10 % (2-9); NEUTROPHILS # (AUTO) 1.68 x10^3/uL (1.8-6.8); NEUTROPHILS % (AUTO) 51 % (42-75); PLATELET COUNT 271 x10^3/uL (130-400); RED BLOOD COUNT 4.01 x10^6/uL (3.82-5.3); RED CELL DISTRIBUTION WIDTH 14.4 % (9.6-15.2)
[2019-12-25 17:46] LABS: ALBUMIN 3.9 g/dL (3.4-5.0); CHLORIDE 109 mmol/L (98-107)
[2019-12-25 17:57] LABS: ALANINE AMINOTRANSFERASE 36 U/L (12-78); ALKALINE PHOSPHATASE 114 U/L (45-117); ANION GAP 7 mmol/L (5-15); BILIRUBIN,TOTAL 0.8 mg/dL (0.2-1.0); CALCIUM 8.8 mg/dL (8.5-10.1); CREATININE 0.73 mg/dL (0.55-1.02); FREE T4 (FREE THYROXINE) 1.37 ng/dL (0.76-1.46); TOTAL PROTEIN 7.6 g/dL (6.4-8.2)
== END | disposition home or self-care (01) ==
LOC: CFH 12:30
PROVIDERS: ATTEND Registered Nurse
DX: I10 Essential (primary) hypertension (principal); R53.83 Other fatigue; I48.0 Paroxysmal atrial fibrillation; R07.89 Other chest pain; R06.00 Dyspnea, unspecified; R42 Dizziness and giddiness; E11.9 Type 2 diabetes mellitus without complications
CPT/HCPCS: 36415; 78452; 80053; 84439; 84443; 84481; 85025; 93017; A9502; J2785

== ENCOUNTER → 2020-01-16 | Outpatient (CLI) | payer OTHER ==
[~2020-01-16] MED LIST changes: +METO25TA91 PO; -REGADENOSON 0.4 MG/5 ML SYRINGE ONE
== END | disposition home or self-care (01) ==
LOC: CFH 13:37
PROVIDERS: ATTEND Registered Nurse
DX: I11.9 Hypertensive heart disease without heart failure (principal); I08.3 Combined rheumatic disorders of mitral, aortic and tricuspid valves; I48.0 Paroxysmal atrial fibrillation
CPT/HCPCS: 93306

== ENCOUNTER 2020-01-17 10:14 | Day surgery (SDC) | payer OTHER ==
[~2020-01-17] VITALS: Ht 149.9 cm; Wt 60.0 kg
[~2020-01-17 10:14] MED LIST changes: -METO25TA91 PO
[2020-01-17] MEDS ORDERED: SODIUM CHLORIDE 0.9% 1,000 ML IV SCH (11:07)
[2020-01-17 11:15] VITALS: BP 126/75
[2020-01-17] MEDS ORDERED: METO25TA91 PO (11:36)
[2020-01-17 11:47] LABS: BASOPHILS # (AUTO) 0.03 x10^3/uL (0-0.1); BASOPHILS % (AUTO) 1 % (0-1); EOSINOPHILS # (AUTO) 0.07 x10^3/uL (0-0.4); EOSINOPHILS % (AUTO) 2 % (1-7); LYMPHOCYTES # (AUTO) 1.23 x10^3/uL (1-3.4); LYMPHOCYTES % (AUTO) 32 % (22-44); MD NO; MEAN CORPUSCULAR HEMOGLOBIN 33.5 pg (27.0-34.8); MEAN CORPUSCULAR VOLUME 101.5 fL (80-100); MEAN PLATELET VOLUME 8.2 fL (7.4-10.4); MONOCYTES # (AUTO) 0.36 x10^3/uL (0.2-0.8); MONOCYTES % (AUTO) 10 % (2-9); NEUTROPHILS # (AUTO) 2.14 x10^3/uL (1.8-6.8); NEUTROPHILS % (AUTO) 56 % (42-75); PLATELET COUNT 259 x10^3/uL (130-400); RED BLOOD COUNT 4.06 x10^6/uL (3.82-5.3); RED CELL DISTRIBUTION WIDTH 14.2 % (9.6-15.2)
[2020-01-17 11:53] LABS: ANION GAP 5 mmol/L (5-15); CALCIUM 9.7 mg/dL (8.5-10.1); CHLORIDE 111 mmol/L (98-107); CREATININE 0.86 mg/dL (0.55-1.02)
[2020-01-17] MEDS ORDERED: BIVALIRUDIN 250 MG ONE (12:29)
[2020-01-17] MEDS ORDERED: HEPARIN 1,000 UNITS/ML, 10ML ONE (12:29)
[2020-01-17] MEDS ORDERED: MIDAZOLAM 1 MG/ML, 5ML ONE (12:29)
[2020-01-17] MEDS ORDERED: VERAPAMIL 2.5 MG/ML, 2ML ONE (12:29)
[2020-01-17] MEDS ORDERED: FENTANYL PF 100 MCG/2ML ONE (12:29)
[2020-01-17] MEDS ORDERED: LIDOCAINE 2%, 20ML ONE (12:29)
[2020-01-17] MEDS ORDERED: ACETAMINOPHEN 325 MG TABLET ONE (14:22)
[2020-01-17] MEDS ORDERED: ACETAMINOPHEN 325 MG TABLET PO ONE (14:30)
[2020-01-17] MEDS ORDERED: ONDANSETRON 2MG/ML, 2ML ONE (16:18)
[2020-01-17] MEDS ORDERED: ONDANSETRON 2MG/ML, 2ML IVPush ONE (16:30)
== END 2020-01-17 16:44 | disposition home or self-care (01) ==
LOC: CACL 10:14
PROVIDERS: ATTEND Internal Medicine Cardiovascular Disease
DX: R93.1 Abnormal findings on diagnostic imaging of heart and coronary circulation (principal); I25.10 Atherosclerotic heart disease of native coronary artery without angina pectoris; I10 Essential (primary) hypertension; Z79.01 Long term (current) use of anticoagulants; Z79.899 Other long term (current) drug therapy; Z88.0 Allergy status to penicillin; Z95.0 Presence of cardiac pacemaker; Z98.890 Other specified postprocedural states; Z72.89 Other problems related to lifestyle; Z87.891 Personal history of nicotine dependence
CPT/HCPCS: 36415; 80048; 85025; 93458; 99156; 99157; C1760; C1769; C1894; J1644; J2250; J2405; J3010; Q9967; J0583

== ENCOUNTER → 2020-05-02 | Outpatient (CLI) | payer OTHER ==
[~2020-05-02] MED LIST changes: -ALEN70TA6 PO; +ALEN70TA66 PO; +METO25TA91 PO
== END | disposition home or self-care (01) ==
LOC: CFH 12:23
PROVIDERS: ATTEND Pain Medicine Pain Medicine
DX: S22.000S Wedge compression fracture of unspecified thoracic vertebra, sequela (principal); M50.33 Other cervical disc degeneration, cervicothoracic region; M48.03 Spinal stenosis, cervicothoracic region; M47.814 Spondylosis without myelopathy or radiculopathy, thoracic region; M47.812 Spondylosis without myelopathy or radiculopathy, cervical region; M25.78 Osteophyte, vertebrae; X58.XXXS Exposure to other specified factors, sequela
CPT/HCPCS: 72125; 72128

== ENCOUNTER → 2020-11-22 | Outpatient (CLI) | payer OTHER ==
[~2020-11-22] MED LIST changes: -ALEN70TA66 PO; +ALEN70TA77 PO; -DRON400T PO; +DRON400T6 PO
[2020-11-22 12:26] LABS: ALANINE AMINOTRANSFERASE 24 U/L (12-78); ALBUMIN 3.7 g/dL (3.4-5.0); ANION GAP 6 mmol/L (5-15); CALCIUM 9.1 mg/dL (8.5-10.1); CHLORIDE 108 mmol/L (98-107)
[2020-11-22 12:29] LABS: ALKALINE PHOSPHATASE 98 U/L (45-117); BILIRUBIN,TOTAL 0.6 mg/dL (0.2-1.0); CHOL/HDL RATIO 2.6; CHOLESTEROL, TOTAL 228 mg/dL (140-239); CREATININE 0.67 mg/dL (0.55-1.02); HDL CHOL % 39 % (28-40); HDL CHOLESTEROL (DIRECT) 88 mg/dL (40-60); LDL CHOLESTEROL,CALCULATED 117 mg/dL (54-169); LDL/HDL RATIO 1.3 (0.5-3.0); TOTAL PROTEIN 7.2 g/dL (6.4-8.2); TRIGLYCERIDES 115 mg/dL (50-200); VLDL CHOLESTEROL 23 mg/dL (0-25)
== END | disposition home or self-care (01) ==
LOC: LAB 11:49
PROVIDERS: ATTEND Physician Assistant Medical
DX: I10 Essential (primary) hypertension (principal); R00.2 Palpitations; I48.0 Paroxysmal atrial fibrillation; Z95.0 Presence of cardiac pacemaker
CPT/HCPCS: 36415; 80053; 80061; 86480

== ENCOUNTER 2020-12-17 18:07 | Emergency (ER) | payer OTHER ==
[~2020-12-17] VITALS: Ht 152.4 cm; Wt 61.0 kg
--- NOTE | 2020-12-17 19:53 | NUR ---
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
[2020-12-17] MEDS ORDERED: KETOROLAC 30 MG/1 ML ONE (20:46)
[2020-12-17] MEDS ORDERED: SODIUM CHLORIDE FLUSH 10ML SYR IVF ONE (21:00)
[2020-12-17] MEDS ORDERED: SODIUM CHLORIDE 0.9% 1,000ML IVBOLUS ONE (21:00)
[2020-12-17] MEDS ORDERED: PLEASE ENTER HEIGHT AND WEIGHT MC SCH (21:00)
[2020-12-17] MEDS ORDERED: KETOROLAC 30 MG/1 ML IVPush ONE (21:00)
[2020-12-17 21:10] LABS: BASOPHILS % (AUTO) 1 % (0-1); EOSINOPHILS % (AUTO) 1 % (1-7); LYMPHOCYTES % (AUTO) 31 % (22-44); MEAN CORPUSCULAR HEMOGLOBIN 33.5 pg (27.0-34.8); MEAN CORPUSCULAR HGB CONC 33.8 g/dL (32.4-35.8); MEAN PLATELET VOLUME 7.9 fL (7.4-10.4); MONOCYTES % (AUTO) 9 % (2-9); NEUTROPHILS % (AUTO) 58 % (42-75); PLATELET COUNT 240 x10^3/uL (130-400); RED BLOOD COUNT 3.96 x10^6/uL (3.82-5.3); RED CELL DISTRIBUTION WIDTH 13.2 % (9.6-15.2)
[2020-12-17 21:21] LABS: ALANINE AMINOTRANSFERASE 32 U/L (12-78); ALBUMIN 3.7 g/dL (3.4-5.0); ANION GAP 6 mmol/L (5-15); CALCIUM 8.2 mg/dL (8.5-10.1); CHLORIDE 108 mmol/L (98-107); CREATININE 0.73 mg/dL (0.55-1.02)
[2020-12-17 21:23] LABS: ALKALINE PHOSPHATASE 113 U/L (45-117); BILIRUBIN,TOTAL 0.4 mg/dL (0.2-1.0); TOTAL PROTEIN 7.2 g/dL (6.4-8.2)
[2020-12-17 21:24] LABS: MICROSCOPIC INDICATED
[2020-12-17 21:51] VITALS: BP 123/66
== END 2020-12-17 23:26 | disposition home or self-care (01) ==
LOC: ED 20:49
DX: R10.9 Unspecified abdominal pain (principal); M54.5 Low back pain; I25.10 Atherosclerotic heart disease of native coronary artery without angina pectoris; I11.0 Hypertensive heart disease with heart failure; I48.91 Unspecified atrial fibrillation; Z90.49 Acquired absence of other specified parts of digestive tract; Z95.0 Presence of cardiac pacemaker
CPT/HCPCS: 36415; 74176; 80053; 81001; 83690; 85025; 87086; 96361; 96374; 99284; J1885; J7030

== ENCOUNTER 2020-12-20 22:15 | Emergency (ER) | payer OTHER ==
[~2020-12-20] VITALS: Ht 149.9 cm; Wt 61.9 kg
--- NOTE | 2020-12-20 22:44 | NUR ---
PT PRESENTS TO ER FOR LEFT LOWER ABDOMINAL PAIN RADIATING TO THE LEFT FLANK/HIP, PT WAS HERE ON TUESDAY AND WAS GIVEN PAIN MEDS AND WAS TOLD TO TAKE PAIN MEDS AND IF PAIN NOT BETTER WITH MEDICATION TO RETURN TO ER FOR FURTHER EVALUATION, PT NAUSEOUS WITH NO VOMITTING, FAMILY AT BEDSIDE.
[2020-12-20] MEDS ORDERED: HYDROmorphone 1 MG/ML, 1ML INJ IV ONE (23:00)
[2020-12-20] MEDS ORDERED: HYDROmorphone 1 MG/ML, 1ML INJ ONE (23:23)
[2020-12-20 23:29] LABS: BASOPHILS % (AUTO) 1 % (0-1); EOSINOPHILS % (AUTO) 2 % (1-7); LYMPHOCYTES % (AUTO) 35 % (22-44); MEAN PLATELET VOLUME 7.8 fL (7.4-10.4); MONOCYTES % (AUTO) 9 % (2-9); NEUTROPHILS % (AUTO) 53 % (42-75); PLATELET COUNT 264 x10^3/uL (130-400); RED BLOOD COUNT 3.62 x10^6/uL (3.82-5.3); RED CELL DISTRIBUTION WIDTH 13.6 % (9.6-15.2)
[2020-12-20 23:42] LABS: ALANINE AMINOTRANSFERASE 28 U/L (12-78); ALBUMIN 3.7 g/dL (3.4-5.0); ANION GAP 6 mmol/L (5-15); CALCIUM 8.5 mg/dL (8.5-10.1); CHLORIDE 112 mmol/L (98-107); CREATININE 0.89 mg/dL (0.55-1.02)
[2020-12-20 23:44] LABS: ALKALINE PHOSPHATASE 123 U/L (45-117); BILIRUBIN,TOTAL 0.3 mg/dL (0.2-1.0)
[2020-12-20 23:48] LABS: MICROSCOPIC AUTO
[2020-12-20] MEDS ORDERED: ONDANSETRON 2MG/ML, 2ML ONE (23:56)
[2020-12-20 23:58] LABS: INTERNATIONAL NORMALIZED RATIO 2.15 (0.93-1.1); PROTHROMBIN TIME 22.7 Seconds (9.6-11.5)
--- NOTE | 2020-12-21 00:06 | NUR ---
pt feeling nauseous after IV dilaudid, IF zofran ordered by MD and administered by this RN
--- NOTE | 2020-12-21 00:33 | NUR ---
pt laying in bed, pt reports a decrease in pain but still has it, pt no longer vomitting after zofran administration, daughter at bedside, VSS, all needs in reach, call light in reach, side rails up with bed in low position with wheel locks engaged
[2020-12-21] MEDS ORDERED: ONDANSETRON 2MG/ML, 2ML ONE (01:11)
[2020-12-21] MEDS ORDERED: KETOROLAC 30 MG/1 ML ONE (01:11)
[2020-12-21] MEDS ORDERED: METHOCARBAMOL 750 MG TABLET ONE (01:11)
[2020-12-21] MEDS ORDERED: KETOROLAC 30 MG/1 ML IVPush ONE (01:30)
[2020-12-21] MEDS ORDERED: METHOCARBAMOL 750 MG TABLET PO ONE (01:30)
[2020-12-21] MEDS ORDERED: ONDANSETRON 2MG/ML, 2ML IVPush ONE ×2 (01:30)
[2020-12-21 01:38] VITALS: BP 124/53
== END 2020-12-21 01:47 | disposition home or self-care (01) ==
LOC: ED 23:30
DX: S39.011A Strain of muscle, fascia and tendon of abdomen, initial encounter (principal); S39.012A Strain of muscle, fascia and tendon of lower back, initial encounter; I10 Essential (primary) hypertension; I48.91 Unspecified atrial fibrillation; Z87.891 Personal history of nicotine dependence; Z90.49 Acquired absence of other specified parts of digestive tract; X58.XXXA Exposure to other specified factors, initial encounter; Y93.89 Activity, other specified; Y92.89 Other specified places as the place of occurrence of the external cause; Y99.8 Other external cause status
CPT/HCPCS: 36415; 72110; 73502; 80053; 81001; 83605; 83690; 85025; 85610; 87086; 96374; 96375; 96376; 99285; J1170; J1885; J2405

== ENCOUNTER → 2021-01-08 | Outpatient (CLI) | payer OTHER | END | disposition home or self-care (01) | LOC: CFH 10:42 | PROVIDERS: ATTEND Family Medicine | DX: M25.552 Pain in left hip (principal) ==